=== PATIENT | male | born 1990 | race Two or more races ===

== ENCOUNTER 2018-09-23 21:38 | Emergency (ER) | payer OTHER ==
[2018-09-23 21:55] VITALS: BP 134/90; PULSE 94; TEMP 98.3; BMI 27.2
[2018-09-23] MEDS ORDERED: DIPHTH,PERTUSS(ACELL),TET 0.5 ML DISP.SYRIN IM ONE ×2 (22:44→22:45)
--- NOTE | 2018-09-24 03:28 | PDOC ---
Documentation entered by Philly Jones SCRIBE, acting as scribe for Jennifer Whaley MD. Jennifer Whaley MD: This documentation has been prepared by the Robert albert Xhesika, SCRIBE, under my direction and personally reviewed by me in its entirety. I confirm that the documentation accurately reflects all work, treatment, procedures, and medical decision making performed by me. History of Present Illness - General Chief Complaint: Injury Stated Complaint: FELL INTO A THORN CONTRERAS Time Seen by Provider: 09/23/18 21:42 History Source: Patient Exam Limitations: No Limitations - History of Present Illness Initial Comments: 09/23/18 22:56 The patient is a 27 year old male, with no significant past medical history of who presents to the emergency department with an injury around 2pm. The patient states he was at work moving things, his foot got stuck in the mud when he fell into thorn bushes and landed on his hands and knees. The patient states he felt his hands tingling and were numb, however, that has since resolved. The patient states he has had a constant headache since 5pm. The patient states he does not remember when his last tetanus was. The patient denies chest pain, shortness of breath, headache. The patient denies fever, chills, vomit, or constipation. The patient denies dysuria or hematuria. Allergies:NKDA Past surgical history:None reported Social history: None reported Past History - Past Medical History Allergies/Adverse Reactions: Allergies Allergy/AdvReac Type Severity Reaction Status Date / Time No Known Allergies Allergy Verified 09/23/18 21:40 Home Medications: Ambulatory Orders NK [No Known Home Medication] 09/23/18 COPD: No - Surgical History Cholecystectomy: Yes - Suicide/Smoking/Psychosocial Hx Smoking History: Never smoked Hx Alcohol Use: No Drug/Substance Use Hx: No Review of Systems - Review of Systems Able to Perform ROS?: Yes Comments:: 09/23/18 22:58 GENERAL/CONSTITUTIONAL: No fever or chills. No weakness. HEAD, EYES, EARS, NOSE AND THROAT: No change in vision. No ear pain or discharge. No sore throat. CARDIOVASCULAR: No chest pain or shortness of breath. RESPIRATORY: No cough, wheezing, or hemoptysis. GASTROINTESTINAL: No nausea, vomiting, diarrhea or constipation. GENITOURINARY: No dysuria, frequency, or change in urination. MUSCULOSKELETAL: No joint or muscle swelling or pain. No neck or back pain. SKIN: (+) hand injury. No rash NEUROLOGIC: (+) headache. No vertigo, loss of consciousness, or change in strength/sensation. ENDOCRINE: No increased thirst. No abnormal weight change. HEMATOLOGIC/LYMPHATIC: No anemia, easy bleeding, or history of blood clots. ALLERGIC/IMMUNOLOGIC: No hives or skin allergy. *Physical Exam - Vital Signs Last Vital Signs Temp Pulse Resp BP Pulse Ox 98.3 F 94 H 16 134/90 97 09/23/18 21:40 09/23/18 21:40 09/23/18 21:40 09/23/18 21:40 09/23/18 21:40 - Physical Exam Comments: 09/23/18 22:58 GENERAL: Awake, alert, and fully oriented, in no acute distress HEAD: No signs of trauma EYES: PERRLA, EOMI, sclera anicteric, conjunctiva clear ENT: Auricles normal inspection, hearing grossly normal, nares patent, oropharynx clear without exudates. Moist mucosa NECK: Normal ROM, supple, no lymphadenopathy, JVD, or masses LUNGS: Breath sounds equal, clear to auscultation bilaterally. No wheezes, and no crackles HEART: Regular rate and rhythm, normal S1 and S2, no murmurs, rubs or gallops ABDOMEN: Soft, nontender, normoactive bowel sounds. No guarding, no rebound. No masses EXTREMITIES: Normal range of motion, no edema. No clubbing or cyanosis. No cords, erythema, or tenderness NEUROLOGICAL: Cranial nerves II through XII grossly intact. Normal speech, normal gait SKIN: (+) multiple superficial punctual wounds of palmar surface of bilateral hands. (+) Superficial non bleeding non tender cm laceration of the proximal aspect of anterior lower leg. Warm, Dry, normal turgor. Progress Note - Progress Note Progress Note: As noted above, this otherwise healthy 27-year-old presents with multiple superficial puncture wounds of the palmar aspects of both hands and one small wound of the left lower leg; these were sustained when patient fell into a thornbush. There is no evidence on physical exam for complicated bleeding/ early infection or foreign body in any of the wounds. Wounds were cleansed with Hibiclens/ethanol solution. Since patient was unaware of his previous tetanus immunization, Boostrix IM administered. Patient discharged with instructions to return to the ER if any of the wounds appear to be infected or he has systemic signs of infectious process which were explained to him in detail. He should follow-up with his own general doctor within the next 5 days. *DC/Admit/Observation/Transfer Diagnosis at time of Disposition: Multiple puncture wounds - Discharge Dispostion Disposition: HOME Condition at time of disposition: Stable - Referrals Referrals: Jeffry Gómez [Primary Care Provider] - - Patient Instructions Printed Discharge Instructions: DI for Puncture Wound Additional Instructions: Keep wounds clean and dry Return to ER if you have increase in swelling/redness/pain around wounds Return to ER if you see red streaking extending from the wounds or develop fever /chills Follow-up with your doctor within the next 5 days - Post Discharge Activity
== END 2018-09-23 22:57 | disposition home or self-care (01) ==
LOC: FER 21:38
PROC: 3E0234Z Introduction of Serum, Toxoid and Vaccine into Muscle, Percutaneous Approach (ICD-10-PCS; principal; 2018-09-23)
DX: T14.8XXA Other injury of unspecified body region, initial encounter (principal); X58.XXXA Exposure to other specified factors, initial encounter; Y93.89 Activity, other specified; Y92.89 Other specified places as the place of occurrence of the external cause
CPT/HCPCS: 90715; 99281-25